=== PATIENT | male | born 1990 | race Caucasian/White ===

== ENCOUNTER 2021-03-29 03:40 | Emergency (ER) | payer OTHER ==
[~2021-03-29] VITALS: Ht 193 cm; Wt 99.8 kg
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
[2021-03-29] MEDS ORDERED: IBUPROFEN 400 MG TABLET ONE (05:00)
--- NOTE | 2021-03-29 05:02 | NUR ---
verbal order for 800mg motrin po
--- NOTE | 2021-03-29 05:18 | NUR ---
taken to ct
[2021-03-29] MEDS ORDERED: IBUPROFEN 400 MG TABLET PO ONE (05:30)
[2021-03-29] MEDS ORDERED: CYCLOBENZAPRINE 10 MG TABLET ONE (05:38)
[2021-03-29] MEDS ORDERED: NAPR-1192 PO (05:56)
[2021-03-29] MEDS ORDERED: CYCL5TAB PO (05:56)
[2021-03-29] MEDS ORDERED: CYCLOBENZAPRINE 10 MG TABLET PO ONE (06:00)
--- NOTE | 2021-03-29 06:00 | NUR ---
Patient discharged to home in stable condition. RX,Written and verbal after care instructions given. Patient verbalizes understanding of instruction. PT ambulatory with a steady gait.
[2021-03-29 06:09] VITALS: BP 118/63
== END 2021-03-29 06:00 | disposition home or self-care (01) ==
LOC: ER 03:42
DX: S13.4XXA Sprain of ligaments of cervical spine, initial encounter (principal); S16.1XXA Strain of muscle, fascia and tendon at neck level, initial encounter; G44.209 Tension-type headache, unspecified, not intractable; V49.49XA Driver injured in collision with other motor vehicles in traffic accident, initial encounter; Y93.89 Activity, other specified; Y92.413 State road as the place of occurrence of the external cause; Y99.8 Other external cause status
CPT/HCPCS: 70450-TC; 71045-TC; 72125-TC